=== PATIENT | male | born 2000 | race Caucasian/White ===

== ENCOUNTER → 2020-11-30 07:44 | Outpatient (CLI) | payer OTHER, SELFPAY ==
--- NOTE | 2020-11-30 07:47 | RDU_ITS ---
Reason For Study: asymmetrical kidneys, atrophy,mass Right Renal Artery Left Renal Artery Right renal artery ostium Left renal artery ostium 142.7/32.9 168.6/16.8 RSV/EDV. PSV/EDV. Right renal artery proximal Left renal artery proximal PSV/EDV 139.5/42.6 PSV/EDV. 134.7/32.7 . Right renal artery mid 111.1/35.3 Left renal artery mid 105.2/27.1 PSV/EDV. PSV/EDV . Right renal artery distal Left renal artery distal 157.7/48.0 140.9/46.5 PSV/EDV. PSV/EDV. Right Renal Parenchyma Left Renal Parenchyma Upper Pole Medula 42.3/11.6 Left upper pole medulla 25.4/13.4 PSV/EDV. PSV/EDV . Right upper pole medulla EDR .27 . Left upper pole medulla EDR .53 . Right upper pole medulla R.I. .73 . Left upper pole medulla R.I. .47 . Upper [place] Cortx 12.4/6.9 PSV/EDV. UP Cortex 18.9/9.0 PSV/EDV. Right upper pole cortex EDR .55 . Left upper pole cortex EDR .48 . Right upper pole cortex R.I. .45 . Left upper pole cortex R.I. .52 . Right lower Pole medulla 22.8/6.9 Left lower Pole medulla 24.3/13.4 PSV/EDV . PSV/EDV . Right lower pole medulla EDR .3 . Left lower pole medulla EDR .55 . Right lower pole medulla R.I. .7 . Left lower pole medulla R.I. .45 . Lower Pole Cortex 12.4/5.6 PSV/EDV. Lower Pole Cortx 22.1/12.3 PSV/EDV. Right lower pole cortex EDR .46 . Left lower pole cortex EDR .55 . Right lower pole cortex R.I. .54 . Left lower pole cortex R.I. .45 . Right Renal Hilar Left Renal Hilar Right Hilar avg 44.0/*13.9 PSV/EDV. LT Hilar avg 76.6/26.2 PSV/EDV . Right hilar acceleration time 50 Left hilar acceleration time 20 m/sec. m/sec. Right Renal Dimensions Left Renal Dimensions Right kidney size 10.6 cm . Left kidney size 12.3 cm . Right cortical dimension .86 cm . Left cortical dimension .88 cm . Aorta Proximal abdominal aorta 1.12 x 1.27 cm . Proximal abdominal aorta peak systolic velocity is 227 cm/sec . Distal abdominal aorta 1.21 x 1.23 cm . Distal abdominal aorta peak systolic velocity is 146.1 cm/sec . Normal renal veins bilat. VL/Renal Artery Duplex Ultrasound Interpretation Summary Maximal aortic diameter 1.12 x 1.27 cm which is normal. Peak systolic velocity within the proximal abdominal aorta is 227 cm/s. Values above 100 cm/s peak systolic flow are abnormal Less than 60% stenosis right renal artery Right renal length 10.6 cm Less than 60% stenosis left renal artery Left renal length 12.3 cm This is a vascular examination Ordering Physician: Uche Bautista Performed By: Jin Dallas RVT
--- NOTE | 2020-11-30 07:47 | CDU_ITS ---
Reason For Study: lightheadedness on standing, bruit Rt. Velocities/BP Lt. Velocities/BP Prox CCA 150.3/29.8 cm/sec. Prox CCA 157.7/36.0 cm/sec. Mid CCA 145.4/28.5 cm/sec. Mid CCA 138.8/27.5 cm/sec. Dist CCA 156.3/32.1 cm/sec. Dist CCA 136.2/35.2 cm/sec. Prox ICA 101.6/30.3 cm/sec. Prox ICA 103.4/23.1 cm/sec. Mid ICA 85.1/34.0 cm/sec. Mid ICA 77.4/23.1 cm/sec. Dist ICA 74.7/30.9 cm/sec. Dist ICA 85.2/30.8 cm/sec. Rt. ICA/CCA = .7. Lt. ICA/CCA = .7. Prox ECA 119.8/24.8 cm/sec. Prox ECA 102.6/14.5 cm/sec. Rt. Vert. 42.7/10.9 cm/sec. Lt. Vert. 73.6/25.7 cm/sec. Right Extracranial There is no significant atherosclerotic plaque noted in the right common carotid artery. There is no significant atherosclerotic plaque noted in the right internal carotid artery. There is no significant atherosclerotic plaque noted in the right external carotid artery. Antegrade flow is noted in the right vertebral artery. Left Extracranial There is no significant atherosclerotic plaque noted in the left common carotid artery. There is no significant atherosclerotic plaque noted in the left internal carotid artery. There is no significant atherosclerotic plaque noted in the left external carotid artery. Antegrade flow is noted in the left vertebral artery. Procedure Carotid Duplex 77658. This is a Carotid Duplex examination using B-mode, color flow and specral Doppler. The exam was diagnostic. Exam performed in department. VL/Carotid Duplex Ultrasound Interpretation Summary No hemodynamically significant plaque right common carotid or internal carotid artery with less than 50% stenosis of the internal carotid artery Less than 50% stenosis right external carotid artery No hemodynamically significant plaque left common carotid artery or internal ca rotid artery Less than 50% stenosis left internal carotid artery Less than 50% stenosis left external carotid artery Patent and antegrade vertebral arteries bilaterally Flow velocities mildly elevated bilateral common carotid arteries, clinical cor relation would be appropriate Ordering Physician: Uche Bautista Performed By: Jin Dallas RVT
== END ==
PROVIDERS: PCP Family Medicine; Referring Provider Family Medicine; Visit Provider Family Medicine
DX: R09.89 Other specified symptoms and signs involving the circulatory and respiratory systems (principal); Q63.9 Congenital malformation of kidney, unspecified; R55 Syncope and collapse
CPT/HCPCS: 93880; 93975